=== PATIENT | female | born 1965 | race Caucasian/White ===

== ENCOUNTER → 2017-03-18 | Outpatient (CLI) | payer OTHER ==
--- NOTE | 2017-03-18 15:29 | CR ---
EXAMINATION: Bilateral knees HISTORY: Pain COMPARISON: None TECHNIQUE: 4 views bilaterally FINDINGS: Knee joint spaces appear preserved bilaterally. No fracture or acute osseous abnormality. Bone mineralization is normal. No soft tissue swelling or joint effusion. IMPRESSION: Grossly unremarkable bilateral knees.
== END ==
LOC: MW.CHRC 08:20
PROVIDERS: ATTEND Family Medicine
DX: M25.561 Pain in right knee (principal); M25.562 Pain in left knee; E89.0 Postprocedural hypothyroidism
CPT/HCPCS: 36415; 735642650; 73564-50; 84443

== ENCOUNTER → 2017-03-25 | Outpatient (CLI) | payer OTHER ==
--- NOTE | 2017-03-28 13:34 | MR ---
EXAM DATE: 03/25/17 PATIENT'S AGE: 51 Patient: ROBERTO SULLIVAN Facility: [place], [place] Site Site : [id number] Study: MRI Knee Left [id number]/[id number] 3:31:35 PM Ordering Physician: KATHY HAWTHORNE Final Report: HISTORY: Left knee pain. Technique: Axial, sagittal and coronal T1, proton density and proton density fat saturated images were obtained of the left knee without contrast administration. Comparison: Radiographs 03/18/2017. Findings: Medial compartment: Medial meniscus: Medial meniscus is intact without tear. Articular cartilage: Articular surfaces of the medial joint space compartment appear smooth without focal chondral defect. - Lateral compartment: Lateral meniscus: Intact without tear. Articular cartilage: Articular surfaces of the lateral compartment appear smooth without focal chondral defect. - Patellofemoral compartment: There is subchondral marrow edema underlying the patellar apex and medial facet which suggests the presence of localized grade 4 cartilage fissuring. There is some thinning of the articular cartilage in that region along with surface irregularity related fissuring and fraying. Mild medial trochlear cartilage wear (grade 2). - Ligaments: Subacute high-grade partial tearing of the proximal medial collateral ligament. The lateral ligamentous complex is maintained. The anterior cruciate and posterior cruciate ligaments are intact. - Extensor mechanism: Distal quadriceps tendon and patellar tendon are intact. Medial and lateral patellar restraints are intact. No patellar subluxation or geovanna. - Joint space: Physiologic quantity of joint fluid. No intra-articular joint body. - Bones and soft tissues: Small popliteal cyst. No acute fracture or avascular necrosis. No soft tissue mass or bursitis. Impression: 1. Subacute high-grade partial tearing of the proximal medial collateral ligament, left knee. 2. Chondromalacia patella. 3. Small popliteal cyst. 4. No meniscal tear. Dictated by Shamar Bose MD @ Mar 28 2017 8:40AM (Electronic Signature) Report Signed by Proxy. MITCHELL
== END ==
LOC: MW.MRI 14:45
PROVIDERS: ATTEND Family Medicine
DX: M25.562 Pain in left knee (principal)
CPT/HCPCS: 73721-26-LT; 73721-LT

== ENCOUNTER 2019-03-31 15:05 | Emergency (ER) | payer OTHER ==
[2019-03-31] MEDS ORDERED: Morphine 2 MG/ML Syringe IVPUSH ONE (15:17)
--- NOTE | 2019-03-31 15:18 | EDM.PDOC ---
ED HPI GENERAL MEDICAL PROBLEM - General Chief Complaint: Syncope Stated Complaint: POSSIBLE BROKE ANKLE Time Seen by Provider: 03/31/19 15:17 Source of Information: Reports: Patient - History of Present Illness INITIAL COMMENTS - FREE TEXT/NARRATIVE: HISTORY AND PHYSICAL: History of present illness: [Patient tripped and fell or possibly had syncopal episode she is uncertain she fell down some stairs her main complaint is that of right ankle pain there is moderate swelling and tenderness associated with the lateral ankle/malleolus She does note that she struck her head during the fall but does not recall any loss of consciousness orders uncertain She is also uncertain whether it was even a syncopal event but fall or if she tripped she does just uncertain of the details she has no fever nausea vomiting chills sweats no chest pain shortness breath headache dizziness or palpitation no bowel or urine symptoms ] Review of systems: As per history of present illness and below otherwise all systems reviewed and negative. Past medical history: As per history of present illness and as reviewed below otherwise noncontributory. Surgical history: As per history of present illness and as reviewed below otherwise noncontributory. Social history: No reported history of drug or alcohol abuse. Family history: As per history of present illness and as reviewed below otherwise noncontributory. Physical exam: HEENT: Atraumatic, normocephalic, pupils reactive, negative for conjunctival pallor or scleral icterus, mucous membranes moist, throat clear, neck supple, nontender, trachea midline. Lungs: Clear to auscultation, breath sounds equal bilaterally, chest nontender. Heart: S1S2, regular, negative for clicks, rubs, or JVD. Abdomen: Soft, nondistended, nontender. Negative for masses or hepatosplenomegaly. Negative for costovertebral tenderness. Pelvis: Stable nontender. Genitourinary: Deferred. Rectal: Deferred. Extremities: Atraumatic, negative for cords or calf pain. Neurovascular unremarkable. Right lower extremity hip and knee unaffected lateral malleolus swelling and tenderness noted entire limb neurovascularly intact Neuro: Awake, alert, oriented. Cranial nerves II through XII unremarkable. Cerebellum unremarkable. Motor and sensory unremarkable throughout. Exam nonfocal. Diagnostics: [Right ankle] 3 views Chest [address] CBC CMP UA ordered who were able to obtain a CBC patient refused further lab as she is hard stick and was in yesterday and also blood was unable to be obtained at that time she refused further lab draw EKG - Therapeutics: [Morphine 2 mg IV Cam boot crutches nonweightbearing Follow-up with sore throat [place] ] Impression: [Right ankle fracture definitive disposition and diagnosis as appropriate pending reevaluation and review of above. Right Ankle Pain Score (Numeric/FACES): 7 - Related Data Allergies Allergy/AdvReac Type Severity Reaction Status Date / Time Tape Allergy Rash Uncoded 03/31/19 15:19 Home Meds: Home Meds Zolpidem [Ambien] 10 mg PO BEDTIME 03/31/19 [History] Past Medical History Neurological History: Reports: Other (See Below) Other Neuro History: Suboccipital craniotomy for resection of AVM on 07/14/18. - Past Surgical History HEENT Surgical History: Reports: Cataract Surgery ED ROS GENERAL - Review of Systems Review Of Systems: See Below ED EXAM, GENERAL - Physical Exam Exam: See Below Course - Vital Signs Last Recorded V/S: Last Vital Signs Temp 97.3 F 03/31/19 15:22 Pulse 75 03/31/19 15:22 Resp 16 03/31/19 15:22 BP 129/68 03/31/19 15:22 Pulse Ox 100 03/31/19 15:22 - Orders/Labs/Meds Orders: Active Orders 24 hr Category Date Time Status EKG Documentation Completion [RC] STAT Care 03/31/19 15:30 Active COMPREHENSIVE METABOLIC PN,CMP [CHEM] Stat Lab 03/31/19 15:30 Ordered ETOH [ETHANOL BLOOD MEDICAL] [CHEM] Stat Lab 03/31/19 15:30 Ordered TROPONIN I [CHEM] Stat Lab 03/31/19 15:30 Ordered UA RFX VANDANA AND CULT IF INDIC [URIN] Stat Lab 03/31/19 15:30 Ordered Labs: Laboratory Tests 03/31/19 Range/Units 15:48 WBC 10.52 (4.0-11.0) K/uL RBC 4.86 (4.30-5.90) M/uL Hgb 14.4 (12.0-16.0) g/dL Hct 43.6 (36.0-46.0) % MCV 89.7 (80.0-98.0) fL MCH 29.6 (27.0-32.0) pg MCHC 33.0 (31.0-37.0) g/dL RDW Std Deviation 44.0 (28.0-62.0) fl RDW Coeff of Lexi 13 (11.0-15.0) % Plt Count 354 (150-400) K/uL MPV 10.20 (7.40-12.00) fL Neut % (Auto) 52.3 (48.0-80.0) % Lymph % (Auto) 41.7 H (16.0-40.0) % [place] % (Auto) 4.0 (0.0-15.0) % Eos % (Auto) 1.5 (0.0-7.0) % Baso % (Auto) 0.5 (0.0-1.5) % Neut # (Auto) 5.5 (1.4-5.7) K/uL Lymph # (Auto) 4.4 H (0.6-2.4) K/uL [place] # (Auto) 0.4 (0.0-0.8) K/uL Eos # (Auto) 0.2 (0.0-0.7) K/uL Baso # (Auto) 0.1 (0.0-0.1) K/uL Nucleated RBC % 0.0 /100WBC Nucleated RBCs # 0 K/uL Meds: Medications Discontinued Medications Generic Name Dose Route Start Last Admin Trade Name Freq PRN Reason Stop Dose Admin Sodium Chloride 1,000 mls @ 999 mls/hr 03/31/19 15:30 03/31/19 15:42 Normal Saline IV 03/31/19 16:30 Not Given STAT ONE Morphine Sulfate 2 mg 03/31/19 15:17 03/31/19 15:35 Morphine IVPUSH 03/31/19 15:18 2 mg ONETIME ONE Administration Departure - Departure Time of Disposition: 17:49 Disposition: Home, Self-Care 01 Condition: Good Clinical Impression: Closed right ankle fracture - Discharge Information Referrals: PCP,Unknown [Primary Care Provider] - Forms: ED Department Discharge Additional Instructions: Cam boot crutches nonweightbearing Medication as prescribed Return if symptoms persist or worsen Follow-up with orthopedist, call phone number below to schedule appropriate followup [facility] [address] [place] [address], [address] [place] [address] my orthopedic The following information is given to patients seen in the emergency department who are being discharged to home. This information is to outline your options for follow-up care. We provide all patients seen in our emergency department with a follow-up referral. The need for follow-up, as well as the timing and circumstances, are variable depending upon the specifics of your emergency department visit. If you don't have a primary care physician on staff, we will provide you with a referral. We always advise you to contact your personal physician following an emergency department visit to inform them of the circumstance of the visit and for follow-up with them and/or the need for any referrals to a consulting specialist. The emergency department will also refer you to a specialist when appropriate. This referral assures that you have the opportunity for follow-up care with a specialist. All of these measure are taken in an effort to provide you with optimal care, which includes your follow-up. Under all circumstances we always encourage you to contact your private physician who remains a resource for coordinating your care. When calling for follow-up care, please make the office aware that this follow-up is from your recent emergency room visit. If for any reason you are refused follow-up, please contact the [facility] emergency department at and asked to speak to the emergency department charge nurse. - My Orders Last 24 Hours: My Active Orders 03/31/19 15:30 EKG Documentation Completion [RC] STAT COMPREHENSIVE METABOLIC PN,CMP [CHEM] Stat ETOH [ETHANOL BLOOD MEDICAL] [CHEM] Stat TROPONIN I [CHEM] Stat UA RFX VANDANA AND CULT IF INDIC [URIN] Stat - Assessment/Plan Last 24 Hours: My Active Orders 03/31/19 15:30 EKG Documentation Completion [RC] STAT COMPREHENSIVE METABOLIC PN,CMP [CHEM] Stat ETOH [ETHANOL BLOOD MEDICAL] [CHEM] Stat TROPONIN I [CHEM] Stat UA RFX VANDANA AND CULT IF INDIC [URIN] Stat
[2019-03-31] MEDS ORDERED: Sodium Chloride 0.9% 1,000 ML IV ONE (15:30)
--- NOTE | 2019-03-31 16:34 | CR ---
HISTORY: Syncope. COMPARISON: None. FINDINGS: Two frontal views of the chest. The lungs are clear. Costophrenic angles sharp. Heart size and pulmonary vascularity are within normal limits. No acute pulmonary process. Dictated by Tasneem Matias MD @ Mar 31 2019 4:32PM Signed by Dr. Tasneem Matias @ Mar 31 2019 4:32PM
--- NOTE | 2019-03-31 16:34 | CR ---
Ankle injury 3 views of the right ankle Findings: There is an oblique nondisplaced distal fibular fracture. Soft tissue swelling. Normal alignment. Dictated by Anupama Veliz MD @ Mar 31 2019 4:32PM Signed by Dr. Anupama Veliz @ Mar 31 2019 4:33PM
--- NOTE | 2019-03-31 16:54 | CT ---
HISTORY: Fell, hit head. Prior brain surgery. Prior AVN embolization and resection. TECHNIQUE: Noncontrast head CT. COMPARISON: 03/30/2019. FINDINGS: Postsurgical changes of occipital craniotomy and post treatment changes of AVM surgery. There is no acute intracranial hemorrhage or acute ischemic infarct. No mass effect or midline shift. No hydrocephalus. No acute extra-axial collection. No acute skull fracture. No acute loss of gannon-white differentiation. The mastoid air cells are clear. Paranasal sinuses are clear. IMPRESSION: 1. No acute intracranial injury or disease. 2. Postsurgical changes of occipital craniotomy with post treatment changes of AVM surgery. Dictated by Shamar Bose MD @ 03/31/2019 4:53:17 PM Please note that all CT scans at this facility use dose modulation, iterative reconstruction, and/or weight-based dosing when appropriate to reduce radiation dose to as low as reasonably achievable. Dictated by: Shamar Bose MD @ 03/31/2019 16:53:23 (Electronically Signed)
== END 2019-03-31 18:16 | disposition home or self-care (01) ==
LOC: MW.ED 15:05
DX: S82.831A Other fracture of upper and lower end of right fibula, initial encounter for closed fracture (principal); Z91.09 Other allergy status, other than to drugs and biological substances; W10.9XXA Fall (on) (from) unspecified stairs and steps, initial encounter
CPT/HCPCS: 36415; 70450; 71045; 73610; 85025; 93005; 96374; 99284; J2270; 99283

== ENCOUNTER 2020-02-03 16:59 | Emergency (ER) | payer OTHER ==
[2020-02-03] MEDS ORDERED: Sodium Chloride 0.9% 1,000 ML IV ONE (18:27)
[2020-02-03] MEDS ORDERED: Ketorolac 30 MG/ML SDV IVPUSH ONE (18:27)
[2020-02-03] MEDS ORDERED: Ondansetron 4 MG/2 ML SDV IVPUSH ONE (18:28)
[2020-02-03] MEDS ORDERED: Morphine 2 MG/ML Syringe IVPUSH ONE (18:28)
--- NOTE | 2020-02-03 18:33 | EDM.PDOC ---
ED HPI GENERAL MEDICAL PROBLEM - General Chief Complaint: Flank Pain Stated Complaint: FLANK PAIN, VOMITING Time Seen by Provider: 02/03/20 18:17 Source of Information: Reports: Patient History Limitations: Reports: No Limitations - History of Present Illness INITIAL COMMENTS - FREE TEXT/NARRATIVE: HISTORY AND PHYSICAL: History of present illness: Patient is a 54-year-old female who presents to the ED today with concern of left-sided flank pain that started about 3 this afternoon. Patient states yesterday she was having the pain off and on but today at 3 it hit and since then has been in pain. Patient states she has not taken any pain medications today for her symptoms. Patient states she is also had a few episodes of vomiting since the pain has started and feels nauseous. Patient has a history of hypothyroidism and osteoarthritis but denies any other health history. Patient denies any other symptoms or concerns. Patient denies fever, chills, chest pain, shortness of breath, or cough. Denies headache, neck stiff ness, change in vision, syncope, or near syncope. Denies diarrhea, constipation, or dysuria. Has not noted any blood in urine or stool. Patient has been eating and drinking appropriately. Review of systems: As per history of present illness and below otherwise all systems reviewed and negative. Past medical history: As per history of present illness and as reviewed below otherwise noncontributory. Surgical history: As per history of present illness and as reviewed below otherwise noncontributory. Social history: See social history for further information Family history: As per history of present illness and as reviewed below otherwise noncontributory. Physical exam: General: Patient is alert, oriented, and in no acute distress. Patient sitting on exam table and tearful throughout exam, appearing mildly uncomfortable from pain. HEENT: Atraumatic, normocephalic, pupils equal and reactive bilaterally, negative for conjunctival pallor or scleral icterus, mucous membranes moist, TMs normal bilaterally, throat clear, neck supple, nontender, trachea midline. No drooling or trismus noted. No meningeal signs. No hot potato voice noted. Lungs: Clear to auscultation, breath sounds equal bilaterally, chest nontender. Heart: S1S2, regular rate and rhythm without overt murmur Abdomen: Soft, nondistended, nontender. Negative for masses or hepatosplenomegaly. Positive for costovertebral tenderness of the left. Pelvis: Stable nontender. Genitourinary: Deferred. Rectal: Deferred. Skin: Intact, warm, dry. No lesions or rashes noted. Extremities: Atraumatic, negative for cords or calf pain. Neurovascular unremarkable. Neuro: Awake, alert, oriented. Cranial nerves II through XII unremarkable. Cerebellum unremarkable. Motor and sensory unremarkable throughout. Exam nonfocal. Notes: Discussed importance for follow-up with urologist. Voices understanding and is agreeable to plan of care. Denies any further questions or concerns at this time. Diagnostics: UA, hcg, CBC, CMP, EKG, chest x-ray, troponin, lipase, abdominal pelvic CT without contrast Therapeutics: NS, Zofran, Morphine Prescription: [place] 5/325 #20, Zofran, Flomax Impression: Ureterolithiasis Plan: 1. Take medication as prescribed. You can also use Tylenol and ibuprofen as directed for pain and discomfort. 2. Follow-up with the urologist as discussed. The number has been provided above for you to call and establish an appointment time. 3. Return to the ED as needed and as discussed. Definitive disposition and diagnosis as appropriate pending reevaluation and review of above. left flank Pain Score (Numeric/FACES): 8 - Related Data Allergies Allergy/AdvReac Type Severity Reaction Status Date / Time Tape Allergy Rash Uncoded 02/03/20 17:50 Home Meds: Home Meds Celecoxib [CeleBREX] mg PO DAILY 02/03/20 [History] Doxepin HCl [Silenor] 6 mg PO BEDTIME 02/03/20 [History] Levothyroxine 125 mcg PO DAILY 02/03/20 [History] Melatonin 10 mg PO BEDTIME 02/03/20 [History] Past Medical History Neurological History: Reports: Other (See Below) Other Neuro History: Suboccipital craniotomy for resection of AVM on 07/14/18. - Infectious Disease History Infectious Disease History: Reports: Chicken Pox - Past Surgical History HEENT Surgical History: Reports: Cataract Surgery Social & Family History - Family History Family Medical History: Noncontributory - Tobacco Use Smoking Status *Q: Former Smoker Used Tobacco, but Quit: Yes Month/Year Tobacco Last Used: 2017 - Caffeine Use Caffeine Use: Reports: Coffee, Energy Drinks, Soda, Tea - Recreational Drug Use Recreational Drug Use: No ED ROS GENERAL - Review of Systems Review Of Systems: Comprehensive ROS is negative, except as noted in HPI. ED EXAM, GENERAL - Physical Exam Exam: See Below (see dictation) Course - Vital Signs Last Recorded V/S: Last Vital Signs Temp 97.7 F 02/03/20 20:04 Pulse 78 02/03/20 20:04 Resp 18 02/03/20 20:04 BP 120/65 02/03/20 20:04 Pulse Ox 97 02/03/20 20:04 - Orders/Labs/Meds Orders: Active Orders 24 hr Category Date Time Status EKG Documentation Completion [RC] STAT Care 02/03/20 18:27 Active Labs: Laboratory Tests 02/03/20 02/03/20 02/03/20 Range/Units 18:37 18:37 18:37 WBC 15.54 H (4.0-11.0) K/uL RBC 5.07 (4.30-5.90) M/uL Hgb 14.8 (12.0-16.0) g/dL Hct 44.7 (36.0-46.0) % MCV 88.2 (80.0-98.0) fL MCH 29.2 (27.0-32.0) pg MCHC 33.1 (31.0-37.0) g/dL RDW Std Deviation 43.9 (28.0-62.0) fl RDW Coeff of Lexi 14 (11.0-15.0) % Plt Count 379 (150-400) K/uL MPV 11.00 (7.40-12.00) fL Neut % (Auto) 84.2 H (48.0-80.0) % Lymph % (Auto) 13.3 L (16.0-40.0) % [place] % (Auto) 2.1 (0.0-15.0) % Eos % (Auto) 0.2 (0.0-7.0) % Baso % (Auto) 0.2 (0.0-1.5) % Neut # (Auto) 13.1 H (1.4-5.7) K/uL Lymph # (Auto) 2.1 (0.6-2.4) K/uL [place] # (Auto) 0.3 (0.0-0.8) K/uL Eos # (Auto) 0.0 (0.0-0.7) K/uL Baso # (Auto) 0.0 (0.0-0.1) K/uL Nucleated RBC % 0.0 /100WBC Nucleated RBCs # 0 K/uL Sodium 142 (136-145) mmol/L Potassium 3.8 (3.5-5.1) mmol/L Chloride 106 (98-107) mmol/L Carbon Dioxide 25.1 (21.0-32.0) mmol/L BUN 12 (7.0-18.0) mg/dL Creatinine 0.8 (0.6-1.0) mg/dL Est Cr Clr Drug Dosing 82.98 mL/min Estimated GFR (MDRD) > 60.0 ml/min Glucose 118 H (74-106) mg/dL Calcium 9.3 (8.5-10.1) mg/dL Total Bilirubin 0.2 (0.2-1.0) mg/dL AST 19 (15-37) IU/L ALT 39 (14-63) IU/L Alkaline Phosphatase 116 (46-116) U/L Troponin I < 0.050 (0.000-0.056) ng/mL Total Protein 7.7 (6.4-8.2) g/dL Albumin 4.0 (3.4-5.0) g/dL Globulin 3.7 (2.6-4.0) g/dL Albumin/Globulin Ratio 1.1 (0.9-1.6) Lipase 174 (73-393) U/L HCG, Qual NEGATIVE (NEG) Urine Color Urine Appearance Urine pH (5.0-8.0) Ur Specific [place] (1.001-1.035) Urine Protein (NEGATIVE) mg/dL Urine Glucose (UA) (NEGATIVE) mg/dL Urine Ketones (NEGATIVE) mg/dL Urine Occult Blood (NEGATIVE) Urine Nitrite (NEGATIVE) Urine Bilirubin (NEGATIVE) Urine Urobilinogen (<2.0) EU/dL Ur Leukocyte Esterase (NEGATIVE) Urine RBC (0-2/HPF) Urine WBC (0-5/HPF) Ur Epithelial Cells (NONE-FEW) Urine Bacteria (NEGATIVE) 02/03/20 Range/Units 19:58 WBC (4.0-11.0) K/uL RBC (4.30-5.90) M/uL Hgb (12.0-16.0) g/dL Hct (36.0-46.0) % MCV (80.0-98.0) fL MCH (27.0-32.0) pg MCHC (31.0-37.0) g/dL RDW Std Deviation (28.0-62.0) fl RDW Coeff of Lexi (11.0-15.0) % Plt Count (150-400) K/uL MPV (7.40-12.00) fL Neut % (Auto) (48.0-80.0) % Lymph % (Auto) (16.0-40.0) % [place] % (Auto) (0.0-15.0) % Eos % (Auto) (0.0-7.0) % Baso % (Auto) (0.0-1.5) % Neut # (Auto) (1.4-5.7) K/uL Lymph # (Auto) (0.6-2.4) K/uL [place] # (Auto) (0.0-0.8) K/uL Eos # (Auto) (0.0-0.7) K/uL Baso # (Auto) (0.0-0.1) K/uL Nucleated RBC % /100WBC Nucleated RBCs # K/uL Sodium (136-145) mmol/L Potassium (3.5-5.1) mmol/L Chloride (98-107) mmol/L Carbon Dioxide (21.0-32.0) mmol/L BUN (7.0-18.0) mg/dL Creatinine (0.6-1.0) mg/dL Est Cr Clr Drug Dosing mL/min Estimated GFR (MDRD) ml/min Glucose (74-106) mg/dL Calcium (8.5-10.1) mg/dL Total Bilirubin (0.2-1.0) mg/dL AST (15-37) IU/L ALT (14-63) IU/L Alkaline Phosphatase (46-116) U/L Troponin I (0.000-0.056) ng/mL Total Protein (6.4-8.2) g/dL Albumin (3.4-5.0) g/dL Globulin (2.6-4.0) g/dL Albumin/Globulin Ratio (0.9-1.6) Lipase (73-393) U/L HCG, Qual (NEG) Urine Color YELLOW Urine Appearance SLT CLOUDY Urine pH 6.0 (5.0-8.0) Ur Specific [place] 1.010 (1.001-1.035) Urine Protein NEGATIVE (NEGATIVE) mg/dL Urine Glucose (UA) NEGATIVE (NEGATIVE) mg/dL Urine Ketones TRACE H (NEGATIVE) mg/dL Urine Occult Blood LARGE H (NEGATIVE) Urine Nitrite NEGATIVE (NEGATIVE) Urine Bilirubin NEGATIVE (NEGATIVE) Urine Urobilinogen 0.2 (<2.0) EU/dL Ur Leukocyte Esterase NEGATIVE (NEGATIVE) Urine RBC 1-3 (0-2/HPF) Urine WBC 0-3 (0-5/HPF) Ur Epithelial Cells FEW (NONE-FEW) Urine Bacteria FEW (NEGATIVE) Meds: Medications Discontinued Medications Generic Name Dose Route Start Last Admin Trade Name Freq PRN Reason Stop Dose Admin Sodium Chloride 1,000 mls @ 999 mls/hr 02/03/20 18:27 02/03/20 18:44 Normal Saline IV 02/03/20 19:27 999 mls/hr BOLUS ONE Administration Ketorolac Tromethamine 30 mg 02/03/20 18:27 02/03/20 18:44 Toradol IVPUSH 02/03/20 18:28 Not Given ONETIME ONE Morphine Sulfate 2 mg 02/03/20 18:28 02/03/20 18:44 Morphine IVPUSH 02/03/20 18:29 2 mg ONETIME ONE Administration Ondansetron HCl 4 mg 02/03/20 18:28 02/03/20 18:44 Zofran IVPUSH 02/03/20 18:29 4 mg ONETIME ONE Administration Departure - Departure Time of Disposition: 20:25 Disposition: Home, Self-Care 01 Clinical Impression: Ureterolithiasis - Discharge Information Referrals: Gideon Barriga MD [Primary Care Provider] - Forms: ED Department Discharge Additional Instructions: The following information is given to patients seen in the emergency department who are being discharged to home. This information is to outline your options for follow-up care. We provide all patients seen in our emergency department with a follow-up referral. The need for follow-up, as well as the timing and circumstances, are variable depending upon the specifics of your emergency department visit. If you don't have a primary care physician on staff, we will provide you with a referral. We always advise you to contact your personal physician following an emergency department visit to inform them of the circumstance of the visit and for follow-up with them and/or the need for any referrals to a consulting specialist. The emergency department will also refer you to a specialist when appropriate. This referral assures that you have the opportunity for follow-up care with a specialist. All of these measure are taken in an effort to provide you with optimal care, which includes your follow-up. Under all circumstances we always encourage you to contact your private physician who remains a resource for coordinating your care. When calling for follow-up care, please make the office aware that this follow-up is from your recent emergency room visit. If for any reason you are refused follow-up, please contact the [facility] Emergency Department at and asked to speak to the emergency department charge nurse. [facility] [address] [place] [address] [address] [facility] - Urology [address] [place] [id number] 1. Take medication as prescribed. You can also use Tylenol and ibuprofen as directed for pain and discomfort. 2. Follow-up with the urologist as discussed. The number has been provided above for you to call and establish an appointment time. 3. Return to the ED as needed and as discussed. Sepsis Event Note - Evaluation Sepsis Screening Result: No Definite Risk - Focused Exam Vital Signs: Vital Signs Temp Pulse Resp BP Pulse Ox 02/03/20 20:04 97.7 F 78 18 120/65 97 02/03/20 17:52 96.9 F 76 24 H 130/79 100 Date Exam was Performed: 02/03/20 Time Exam was Performed: 20:20 - My Orders Last 24 Hours: My Active Orders 02/03/20 18:27 EKG Documentation Completion [RC] STAT - Assessment/Plan Last 24 Hours: My Active Orders 02/03/20 18:27 EKG Documentation Completion [RC] STAT
--- NOTE | 2020-02-03 19:04 | CR ---
INDICATION: Chest pain; difficulty breathing. COMPARISON: Chest radiograph March 31, 2019. TECHNIQUE: Portable AP chest. FINDINGS: Normal size cardiac silhouette. Clear lung meng with no evidence of acute pneumonic infiltrates or CHF. No pneumothorax or pleural effusion. Impression: Negative portable AP chest. Dictated by Ania Nick MD @ Feb 03 2020 7:00PM Signed by Dr. Ania Nick @ Feb 03 2020 7:01PM
[2020-02-03 19:09] LABS: BLOOD UREA NITROGEN,BUN 12 mg/dL (7.0-18.0); CARBON DIOXIDE,CO2 25.1 mmol/L (21.0-32.0); CHLORIDE,CL 106 mmol/L (98-107); GLUCOSE RANDOM 118 mg/dL (74-106); LIPASE 174 U/L (73-393); POTASSIUM,K 3.8 mmol/L (3.5-5.1); SODIUM,NA 142 mmol/L (136-145)
--- NOTE | 2020-02-03 19:24 | CT ---
INDICATION: Left flank pain. COMPARISON: None available TECHNIQUE: CT examination of the abdomen and pelvis was performed without contrast enhancement using 3 mm thick axial sections from the lung bases through the pubic symphysis. Oral contrast was not administered. Please note that all CT scans at this facility use dose modulation, iterative reconstruction, and/or weight-based dosing when appropriate to reduce radiation dose to as low as reasonably achievable. FINDINGS: In the abdomen, the unenhanced liver, spleen, pancreas, and adrenals are normal in appearance. There is a 3 millimeter calculus located in the proximal left ureter immediately distal to the UPJ. This is associated with mild left hydronephrosis. There is no sign of additional left hydroureter or additional renal or ureteral calculi on the left. The right kidney is normal in appearance, with no sign of calculus or obstruction. The right ureter is normal in caliber and there is no sign of ureteral lithiasis. The gallbladder is normal in appearance. The abdominal aorta is normal in caliber with no sign of dilatation. There is no sign of retroperitoneal mass or adenopathy. The stomach, loops of small bowel, and colon in the abdomen are normal in appearance. In the pelvis, the appendix is normal in appearance with no sign of inflammatory process. The loops of small bowel and colon in the pelvis are normal in appearance. The right adnexal region has a tiny punctate calcification, nonspecific. A similar tiny punctate calcification is seen in the left adnexal region. The uterus is normal in appearance. The urinary bladder is normal in appearance. There is no sign of pelvic or inguinal mass or adenopathy. There is no sign of free air or free fluid in the abdomen or pelvis. The lung bases are clear. There is moderate at L5-S1 and mild L4-5 disc degenerative disease. IMPRESSION: CT of the abdomen shows mild left hydronephrosis produced by a 3 millimeter calculus located in the left proximal ureter immediately distal to the UPJ. No sign of any additional renal or ureteral calculi. Normal CT of the pelvis without contrast. Please note that all CT scans at this facility use dose modulation, iterative reconstruction, and/or weight-based dosing when appropriate to reduce radiation dose to as low as reasonably achievable. Dictated by Nicholas Ashley MD @ Feb 03 2020 7:16PM Signed by Dr. Nicholas Ashley @ Feb 03 2020 7:22PM
== END 2020-02-03 20:40 | disposition home or self-care (01) ==
LOC: MW.ED 16:59
DX: N13.2 Hydronephrosis with renal and ureteral calculous obstruction (principal); Z79.899 Other long term (current) drug therapy; Z87.891 Personal history of nicotine dependence; Z91.09 Other allergy status, other than to drugs and biological substances
CPT/HCPCS: 36415; 71045; 74176; 80053; 81001; 83690; 84484; 84703; 85025; 96361; 96374; 96375; 99285; J2270; J2405; J7030; 99284

== ENCOUNTER 2021-03-31 08:39 | Day surgery (SDC) | payer BC ==
[~2021-03-31 08:39] MED LIST: Lactated Ringers 1,000 ML IV SCH; Sodium Chloride 0.9% 10 ML SDV IV PRN; Sodium Chloride 0.9% 10 ML Syringe FLUSH PRN; Sodium Chloride 0.9% 2.5 ML Syringe FLUSH PRN
[2021-03-31] MEDS ORDERED: Propofol 200 MG/20 ML SDV ONE (08:50)
[2021-03-31] MEDS ORDERED: Lidocaine 2% 5 ML SDV ONE (08:50)
[2021-03-31] MEDS ORDERED: Midazolam 1 MG/ML 2 ML SDV ONE (08:51)
[2021-03-31] MEDS ORDERED: fentaNYL 100 MCG/2 ML SDV ONE (08:51)
--- NOTE | 2021-03-31 09:34 | PCM.PREANE ---
Preanesthetic Assessment - Anesthesia/Transfusion/Family Hx Anesthesia History: Prior Anesthesia Without Reaction Family History of Anesthesia Reaction: No Transfusion History: No Prior Transfusion(s) - Review of Systems General: No Symptoms Pulmonary: No Symptoms Cardiovascular: No Symptoms Gastrointestinal: No Symptoms Neurological: No Symptoms Other: Reports: None - Physical Assessment NPO Status Date: 03/31/21 NPO Status Time: 00:01 Vital Signs: Last Vital Signs Temp 97.2 F 03/31/21 08:50 Pulse 85 03/31/21 08:50 Resp 16 03/31/21 08:50 BP 109/69 03/31/21 08:50 Pulse Ox 98 03/31/21 08:50 Height: 5 ft 8 in Weight: 158 lb ASA Class: 2 Mental Status: Alert & Oriented x3 Airway Class: Mallampati = 2 Dentition: Reports: Normal Dentition ROM/Head Extension: Full Lungs: Clear to Auscultation, Normal Respiratory Effort Cardiovascular: Regular Rate, Regular Rhythm - Allergies Allergies/Adverse Reactions: Allergies Allergy/AdvReac Type Severity Reaction Status Date / Time adhesive tape Allergy Blisters Verified 03/31/21 09:16 gabapentin Allergy Nausea and Verified 03/31/21 09:16 Vomiting - Anesthesia Plan Pre-Op Medication Ordered: None, Other - Acknowledgements Anesthesia Type Planned: General Anesthesia Pt an Appropriate Candidate for the Planned Anesthesia: Yes Alternatives and Risks of Anesthesia Discussed w Pt/Guardian: Yes Pt/Guardian Understands and Agrees with Anesthesia Plan: Yes Additional Comments: npo tob quit 2015 etoh 6 beers on weekend anxiety headaches cerebellar AVM repaired 2019 residual chronic nausea, emesis - most mornings after drinking takss phenergan 25 mg Q HS (zofran does not work) residual L sided facial twitching some ataxia walks without walker bmi 24 doesn't like to eat food - forces herself to eat par no questions very anxious - 2 mg versed given IV 0925 PreAnesthesia Questionnaire HEENT History: Reports: Cataract, Other (See Below) Other HEENT History: uses reading glasses Cardiovascular History: Reports: Other (See Below) Other Cardiovascular History: 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 Respiratory History: Reports: None Gastrointestinal History: Reports: GERD Other Gastrointestinal History: dysphagia, N&V since Craniotomy Genitourinary History: Reports: None [employer]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: Musculoskeletal History: Reports: Osteoarthritis Neurological History: Reports: Headaches, Chronic Other Neuro History: pain from nerve damage on back of head Psychiatric History: Reports: Anxiety, Depression, PTSD Endocrine/Metabolic History: Reports: Hypothyroidism Hematologic History: Reports: None Immunologic History: Reports: None Oncologic (Cancer) History: Reports: None Dermatologic History: Reports: None - Infectious Disease History Infectious Disease History: Reports: Chicken Pox - Past Surgical History Head Surgeries/Procedures: Reports: None HEENT Surgical History: Reports: Cataract Surgery, Tonsillectomy Cardiovascular Surgical History: Reports: None Respiratory Surgical History: Reports: None GI Surgical History: Reports: None Female Surgical History: Reports: Tubal Ligation Endocrine Surgical History: Reports: None Musculoskeletal Surgical History: Reports: Other (See Below) Other Musculoskeletal Surgeries/Procedures:: repair of "deformed bones" in her feet, Craniotomy Oncologic Surgical History: Reports: None Dermatological Surgical History: Reports: None - SUBSTANCE USE Tobacco Use Status *Q: Former Tobacco User Tobacco Use Within Last Twelve Months: No Recreational Drug Use History: No - HOME MEDS Home Medications: Home Meds Celecoxib [CeleBREX] 200 mg PO DAILY 02/03/20 [History] Doxepin HCl [Silenor] 6 mg PO BEDTIME 02/03/20 [History] Levothyroxine 125 mcg PO QAM 02/03/20 [History] Melatonin 10 mg PO BEDTIME 02/03/20 [History] Baclofen 10 mg PO Q6H PRN 03/25/21 [History] Calcium Carb/Vitamin D3/Vit K1 [Viactiv 650 mg-12.5 Mcg Chew] 1 tab CHEW DAILY 03/25/21 [History] Calcium Carbonate [Tums] 500 mg CHEW ASDIRECTED PRN 03/25/21 [History] Escitalopram Oxalate 20 mg PO DAILY 03/25/21 [History] Ketamine HCl [Ketamine Hydrochloride] 1 dose TOP ASDIRECTED 03/25/21 [History] Promethazine [Phenergan] 25 mg PO Q4H PRN 03/25/21 [History] Sennosides/Docusate Sodium [Senna-Docusate Sodium Tablet] 1 tab PO DAILY PRN 03/25/21 [History] clonazePAM [Clonazepam] 0.5 mg PO BEDTIME PRN 03/25/21 [History] - CURRENT (IN HOUSE) MEDS Current Meds: Current Medications Lactated Ringer's (Ringers, Lactated) 1,000 mls @ 125 mls/hr IV ASDIRECTED SAM Last Admin: 03/31/21 09:11 Dose: 125 mls/hr Documented by: Sodium Chloride (Sodium Chloride 0.9% 10 Ml Syringe) 10 ml FLUSH ASDIRECTED PRN PRN Reason: Keep Vein Open Sodium Chloride (Sodium Chloride 0.9% 2.5 Ml Syringe) 2.5 ml FLUSH ASDIRECTED PRN PRN Reason: Keep Vein Open Sodium Chloride (Sodium Chloride 0.9% 10 Ml Syringe) 10 ml FLUSH ASDIRECTED PRN PRN Reason: Keep Vein Open Sodium Chloride (Sodium Chloride 0.9% 2.5 Ml Syringe) 2.5 ml FLUSH ASDIRECTED PRN PRN Reason: Keep Vein Open Sodium Chloride (Sodium Chloride 0.9% 10 Ml Sdv) 10 ml IV ASDIRECTED PRN PRN Reason: IV Use Discontinued Medications Fentanyl (Fentanyl 100 Mcg/2 Ml Sdv) Confirm Administered Dose 100 mcg .ROUTE .STK-MED ONE Stop: 03/31/21 08:52 Lidocaine (Lidocaine 2% 5 Ml Sdv) Confirm Administered Dose 5 ml .ROUTE .STK-MED ONE Stop: 03/31/21 08:51 Midazolam HCl (Midazolam 1 Mg/Ml 2 Ml Sdv) Confirm Administered Dose 2 mg .ROUTE .STK-MED ONE Stop: 03/31/21 08:52 Propofol (Propofol 200 Mg/20 Ml Sdv) Confirm Administered Dose 400 mg .ROUTE .STK-MED ONE Stop: 03/31/21 08:51
[2021-03-31] MEDS ORDERED: Ondansetron 4 MG/2 ML SDV ONE ×2 (09:45→09:47)
[2021-03-31] MEDS ORDERED: Promethazine 25 MG/ML SDV ONE (09:45)
--- NOTE | 2021-03-31 10:13 | PCM.OPNOTE ---
- General Post-Op/Procedure Note Date of Surgery/Procedure: 03/31/21 Operative Procedure(s): Diagnostic EGD with biopsies Findings: Hiatal hernia. Bx of duodenum, antrum body fundus of stomach and esophagus. Pre Op Diagnosis: Chronic nausea and vomiting Post-Op Diagnosis: Hiatal hernia Anesthesia Technique: MAC Primary Surgeon: Brenda Barrera Condition: Good
--- NOTE | 2021-03-31 10:38 | PCM.POSTAN ---
POST ANESTHESIA ASSESSMENT - MENTAL STATUS Mental Status: Alert (no anesthetic problems), Oriented - VITAL SIGNS Vital Signs: Last Vital Signs Temp 97.5 F 03/31/21 10:12 Pulse 80 03/31/21 10:33 Resp 15 03/31/21 10:33 BP 118/71 03/31/21 10:33 Pulse Ox 96 03/31/21 10:33 - RESPIRATORY Respiratory Status: Respiratory Rate WNL, Airway Patent, O2 Saturation Stable - CARDIOVASCULAR CV Status: Pulse Rate WNL, Blood Pressure Stable - GASTROINTESTINAL GI Status: No Symptoms - POST OP HYDRATION Hydration Status: Adequate & Stable
--- NOTE | 2021-03-31 11:45 | OR ---
SURGEON: BRENDA BARRERA MD DATE OF PROCEDURE: 03/31/2021 PREOPERATIVE DIAGNOSIS: Chronic nausea and vomiting. POSTOPERATIVE DIAGNOSIS: Hiatal hernia. PROCEDURE PERFORMED: Diagnostic esophagogastroduodenoscopy with biopsies. PRIMARY SURGEON: Brenda Barrera MD ANESTHESIA: MAC. INSTRUMENT USED: Olympus endoscope. EXTENT OF EXAM: To the second portion of duodenum. PREPARATION: Good. LIMITATIONS: None. INDICATIONS FOR EXAMINATION: The patient is a 55-year-old female who has chronic nausea and vomiting. She had an AVM resected from her cerebellum a couple of years ago and ever since then, she has intractable nausea in the mornings. She has tried multiple medications with no relief. The decision was made to proceed with diagnostic EGD to rule out any upper GI source of her symptoms. The patient and I discussed the procedure, expected perioperative course, and the risks. She verbalized understanding and wishes to proceed. PROCEDURE IN DETAIL: The patient was brought to the endoscopy suite and placed in a supine position. A time-out was completed verifying the patient's name, age, date of , allergies, and procedure to be performed. A bite block was placed in the patient's mouth. Monitored anesthesia care was induced, and continuous oxygen was provided via nasal cannula throughout the procedure. After adequate sedation was achieved, a well-lubricated endoscope was placed in the patient's mouth and advanced under direct visualization to the second portion of duodenum. This appeared normal, and a photograph was taken. The scope was then fully withdrawn while examining the color, texture, anatomy, and integrity mucosa of the upper GI tract. A biopsy was taken in the duodenal bulb; however, no evidence of gross inflammation or ulceration was seen. The scope was then brought into the stomach, and a photograph was taken of the pylorus and GE junction. The patient appeared to have a hiatal hernia, and a photograph of this was taken. Biopsies were taken of the gastric antrum, body, and fundus and sent for histologic review and H. pylori testing. The gastric mucosa appeared normal. The scope was brought into the distal esophagus. The patient clearly had a hiatal hernia sac. This was small, and a photograph was taken of this. The Z-line appeared mildly irregular. A biopsy was taken 1 cm above this using cold biopsy forceps. The biopsy was sent to pathology, labeled as esophagus. The remainder of the esophagus appeared normal. The scope was removed, and the procedure terminated. The patient tolerated the procedure well, was taken to PACU in stable condition. ENDOSCOPIC DIAGNOSIS: Hiatal hernia. RECOMMENDATIONS: We will follow up with the patient in clinic in 2 weeks regarding her biopsy results and any further steps in treatment. HEMALATHA SINGH /[id number]
--- NOTE | 2021-03-31 11:47 | PCM48HPAN ---
Post Anesthesia Note - EVALUATION WITHIN 48HRS OF ANESTHETIC Vital Signs in Normal Range: Yes Patient Participated in Evaluation: Yes Respiratory Function Stable: Yes Airway Patent: Yes Cardiovascular Function Stable: Yes Hydration Status Stable: Yes Pain Control Satisfactory: Yes Nausea and Vomiting Control Satisfactory: Yes Mental Status Recovered: Yes Vital Signs: Last Vital Signs Temp 97.7 F 03/31/21 10:39 Pulse 72 03/31/21 11:00 Resp 16 03/31/21 11:00 BP 125/73 03/31/21 11:00 Pulse Ox 97 03/31/21 11:00
== END 2021-03-31 11:40 | disposition home or self-care (01) ==
LOC: MW.SDS 08:39
PROVIDERS: ATTEND Surgery
DX: R11.2 Nausea with vomiting, unspecified (principal); K44.9 Diaphragmatic hernia without obstruction or gangrene; K22.8 Other specified diseases of esophagus; K31.89 Other diseases of stomach and duodenum; E03.9 Hypothyroidism, unspecified; E78.5 Hyperlipidemia, unspecified; Z88.8 Allergy status to other drugs, medicaments and biological substances; Z91.09 Other allergy status, other than to drugs and biological substances; Z79.890 Hormone replacement therapy; Z79.899 Other long term (current) drug therapy; Z87.891 Personal history of nicotine dependence
CPT/HCPCS: 88305; 88312; J2250; J2704; J3010; J7120

== ENCOUNTER 2021-10-20 10:25 | Day surgery (SDC) | payer BC ==
[~2021-10-20 10:25] MED LIST changes: +Glycopyrrolate 0.2 MG/ML SDV ONE; +Ketorolac 30 MG/ML SDV ONE; +Lidocaine 2% 5 ML SDV ONE; +Midazolam 1 MG/ML 2 ML SDV ONE; +Ondansetron 4 MG/2 ML SDV ONE; +Propofol 200 MG/20 ML SDV ONE; +Rocuronium Bromide 50 MG/5 ML Syringe ONE; -Sodium Chloride 0.9% 10 ML SDV IV PRN; +Sodium Chloride 0.9% 20 ML SDV IV PRN; +Sugammadex Sodium 200 MG/2 ML VIAL ONE; +ceFAZolin 2 GM in Premix Bag 1 BAG IV ONE; +fentaNYL 250 MCG/5 ML SDV ONE
[2021-10-20] MEDS ORDERED: Bupivacaine 0.5% 30 ML SDV ONE (11:03)
--- NOTE | 2021-10-20 11:06 | PCM.PREANE ---
Preanesthetic Assessment - Procedure Proposed Procedure: lap alma - Anesthesia/Transfusion/Family Hx Anesthesia History: Prior Anesthesia Without Reaction Type of Anesthesia Reaction: Excessive Nausea/Vomiting Transfusion History: No Prior Transfusion(s) - Review of Systems General: No Symptoms Pulmonary: No Symptoms Cardiovascular: No Symptoms Gastrointestinal: No Symptoms Neurological: No Symptoms Other: Reports: None - Physical Assessment NPO Status Date: 10/19/21 NPO Status Time: 19:45 Height: 5 ft 8 in Weight: 74.843 kg ASA Class: 2 Mental Status: Alert & Oriented x3 Airway Class: Mallampati = 3 Dentition: Reports: Normal Dentition Thyro-Mental Finger Breadths: 2 Mouth Opening Finger Breadths: 3 ROM/Head Extension: Full Lungs: Clear to Auscultation, Normal Respiratory Effort Cardiovascular: Regular Rate, Regular Rhythm - Allergies Allergies/Adverse Reactions: Allergies Allergy/AdvReac Type Severity Reaction Status Date / Time adhesive tape Allergy Blisters Verified 10/14/21 12:11 gabapentin Allergy Nausea and Verified 10/14/21 12:11 Vomiting - Acknowledgements Anesthesia Type Planned: General Anesthesia Pt an Appropriate Candidate for the Planned Anesthesia: Yes Alternatives and Risks of Anesthesia Discussed w Pt/Guardian: Yes Pt/Guardian Understands and Agrees with Anesthesia Plan: Yes Additional Comments: Pt. has scopalamine patch behind right ear that she placed at home last evening. 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: Musculoskeletal History: Reports: Osteoarthritis Neurological History: Reports: Headaches, Chronic, Migraines, Other (See Below) Other Neuro History: pain from nerve damage on back of head, hx of Hemifacial Spasms- gets botox injections Psychiatric History: Reports: Anxiety, Depression, PTSD Endocrine/Metabolic History: Reports: Hypothyroidism Hematologic History: Reports: None Immunologic History: Reports: None Oncologic (Cancer) History: Reports: None Dermatologic History: Reports: None - Infectious Disease History Infectious Disease History: Reports: Chicken Pox - Past Surgical History Head Surgeries/Procedures: Reports: Craniotomy HEENT Surgical History: Reports: Oral Surgery, Tonsillectomy Other HEENT Surgeries/Procedures: wisdom teeth removed Cardiovascular Surgical History: Reports: None Respiratory Surgical History: Reports: None GI Surgical History: Reports: EGD Female Surgical History: Reports: Tubal Ligation Endocrine Surgical History: Reports: None Musculoskeletal Surgical History: Reports: Other (See Below) Other Musculoskeletal Surgeries/Procedures:: repair of "deformed bones" in her feet, Craniotomy Oncologic Surgical History: Reports: None Dermatological Surgical History: Reports: None - SUBSTANCE USE Tobacco Use Status *Q: Former Tobacco User Tobacco Use Within Last Twelve Months: No Recreational Drug Use History: No - HOME MEDS Home Medications: Home Meds Celecoxib [CeleBREX] 200 mg PO DAILY 02/03/20 [History] Levothyroxine 125 mcg PO QAM 02/03/20 [History] Melatonin 10 mg PO BEDTIME 02/03/20 [History] Escitalopram Oxalate 20 mg PO DAILY 03/25/21 [History] Promethazine [Phenergan] 25 mg PO Q4H PRN 03/25/21 [History] Ascorbate Calcium [Vitamin C] 500 mg PO DAILY 10/14/21 [History] Cholecalciferol (Vitamin D3) [Vitamin D3] 2,000 unit PO DAILY 10/14/21 [History] Doxepin HCl 6 mg PO BEDTIME 10/14/21 [History] Omeprazole 20 mg PO ACBREAKFAST 10/14/21 [History] - CURRENT (IN HOUSE) MEDS Current Meds: Current Medications Lactated Ringer's (Ringers, Lactated) 1,000 mls @ 125 mls/hr IV ASDIRECTED SAM Sodium Chloride (Sodium Chloride 0.9% 2.5 Ml Syringe) 2.5 ml FLUSH ASDIRECTED PRN PRN Reason: Keep Vein Open Sodium Chloride (Sodium Chloride 0.9% 20 Ml Sdv) 10 ml IV ASDIRECTED PRN PRN Reason: IV Use Sodium Chloride (Sodium Chloride 0.9% 10 Ml Syringe) 10 ml FLUSH ASDIRECTED PRN PRN Reason: Keep Vein Open Discontinued Medications Fentanyl (Fentanyl 250 Mcg/5 Ml Sdv) Confirm Administered Dose 250 mcg .ROUTE .STK-MED ONE Stop: 10/20/21 07:30 Glycopyrrolate (Glycopyrrolate 0.2 Mg/Ml Sdv) Confirm Administered Dose 0.2 mg .ROUTE .STK-MED ONE Stop: 10/20/21 07:30 Cefazolin Sodium/Dextrose 2 gm (/ Premix) 50 mls @ 100 mls/hr IV ONETIME ONE Stop: 10/19/21 14:23 Acetaminophen (Ofirmev 1000 Mg/100 Ml) Confirm Administered Dose 100 mls @ as directed .ROUTE .STK-MED ONE Stop: 10/20/21 09:14 Ketorolac Tromethamine (Ketorolac 30 Mg/Ml Sdv) Confirm Administered Dose 30 mg .ROUTE .STK-MED ONE Stop: 10/20/21 07:30 Lidocaine (Lidocaine 2% 5 Ml Sdv) Confirm Administered Dose 5 ml .ROUTE .STK-MED ONE Stop: 10/20/21 07:30 Midazolam HCl (Midazolam 1 Mg/Ml 2 Ml Sdv) Confirm Administered Dose 2 mg .ROUTE .STK-MED ONE Stop: 10/20/21 07:29 Ondansetron HCl (Ondansetron 4 Mg/2 Ml Sdv) Confirm Administered Dose 4 mg .ROUTE .STK-MED ONE Stop: 10/20/21 07:30 Propofol (Propofol 200 Mg/20 Ml Sdv) Confirm Administered Dose 200 mg .ROUTE .STK-MED ONE Stop: 10/20/21 07:27 Rocuronium [place] (Rocuronium [place] 50 Mg/5 Ml Syringe) Confirm Administered Dose 50 mg .ROUTE .STK-MED ONE Stop: 10/20/21 07:30 Sugammadex Sodium (Sugammadex Sodium 200 Mg/2 Ml Vial) Confirm Administered Dose 200 mg .ROUTE .STK-MED ONE Stop: 10/20/21 07:30
[2021-10-20] MEDS ORDERED: Dexamethasone 4 MG/ML 5 ML MDV ONE (11:08)
[2021-10-20] MEDS ORDERED: Sugammadex Sodium 200 MG/2 ML VIAL ONE (11:08)
[2021-10-20] MEDS ORDERED: Lidocaine 2% 5 ML SDV ONE ×2 (11:08→11:22)
[2021-10-20] MEDS ORDERED: Rocuronium Bromide 50 MG/5 ML Syringe ONE (11:08)
[2021-10-20] MEDS ORDERED: Ondansetron 4 MG/2 ML SDV ONE (11:08)
[2021-10-20] MEDS ORDERED: Midazolam 1 MG/ML 2 ML SDV ONE (11:09)
[2021-10-20] MEDS ORDERED: fentaNYL 250 MCG/5 ML SDV ONE (11:09)
[2021-10-20] MEDS ORDERED: Propofol 200 MG/20 ML SDV ONE (11:09)
[2021-10-20] MEDS ORDERED: propofoL 50 ML ONE (11:26)
[2021-10-20] MEDS ORDERED: Octyl 2-Cyanoacrylate 1 Tube ONE (11:49)
[2021-10-20] MEDS ORDERED: Metoclopramide 10 MG/2 ML SDV IVPUSH PRN (12:54)
[2021-10-20] MEDS ORDERED: HYDROmorphone 1 MG/ML Syringe IVPUSH PRN (12:54)
[2021-10-20] MEDS ORDERED: Albuterol 0.083% 2.5 MG/3 ML Neb Soln NEB PRN (12:54)
[2021-10-20] MEDS ORDERED: Naloxone 0.4 MG/ML SDV IVPUSH PRN (12:54)
[2021-10-20] MEDS ORDERED: Ondansetron 4 MG/2 ML SDV IVPUSH PRN (12:54)
[2021-10-20] MEDS ORDERED: fentaNYL 100 MCG/2 ML SDV IVPUSH PRN (12:54)
[2021-10-20] MEDS ORDERED: Ketorolac 30 MG/ML SDV ONE (13:34)
--- NOTE | 2021-10-20 14:12 | PCM.OPNOTE ---
- General Post-Op/Procedure Note Date of Surgery/Procedure: 10/20/21 Operative Procedure(s): Laparoscopic cholecystectomy Findings: adhesions of omentum to liver capsule and gallbladder Pre Op Diagnosis: biliary dyskinesia Post-Op Diagnosis: same Anesthesia Technique: MAC Primary Surgeon: Brenda Barrera Fluid Replacement, Intraop: 1,600 Output, Urine Amount: 75 EBL in mLs: 10 Condition: Good
--- NOTE | 2021-10-20 14:14 | PCM.POSTAN ---
POST ANESTHESIA ASSESSMENT - MENTAL STATUS Mental Status: Somnolent - VITAL SIGNS Vital Signs: Last Vital Signs Temp 97.7 F 10/20/21 14:01 Pulse 89 10/20/21 14:12 Resp 16 10/20/21 14:12 BP 137/57 L 10/20/21 14:12 Pulse Ox 100 10/20/21 14:12 - RESPIRATORY Respiratory Status: Respiratory Rate WNL, Airway Patent, O2 Saturation Stable - CARDIOVASCULAR CV Status: Pulse Rate WNL, Blood Pressure Stable - GASTROINTESTINAL GI Status: No Symptoms - PAIN Free Text/Narrative:: Resting comfortably - POST OP HYDRATION Hydration Status: Adequate & Stable
--- NOTE | 2021-10-20 14:36 | PCM48HPAN ---
Post Anesthesia Note - EVALUATION WITHIN 48HRS OF ANESTHETIC Vital Signs in Normal Range: Yes Patient Participated in Evaluation: Yes Respiratory Function Stable: Yes Airway Patent: Yes Cardiovascular Function Stable: Yes Hydration Status Stable: Yes Pain Control Satisfactory: Yes Nausea and Vomiting Control Satisfactory: Yes Mental Status Recovered: Yes Vital Signs: Last Vital Signs Temp 97.7 F 10/20/21 14:01 Pulse 80 10/20/21 14:27 Resp 12 10/20/21 14:27 BP 121/66 10/20/21 14:27 Pulse Ox 94 L 10/20/21 14:27 - COMMENTS/OBSERVATIONS Free Text/Narrative:: Pt doing well post-op. VSS. No apparent anesthetic complications. Dr. Cecil Wei
--- NOTE | 2021-10-20 16:18 | OR ---
SURGEON: BRENDA BARRERA MD DATE OF PROCEDURE: 10/20/2021 PREOPERATIVE DIAGNOSIS: Biliary dyskinesia. POSTOPERATIVE DIAGNOSIS: Biliary dyskinesia. PROCEDURE PERFORMED: Laparoscopic cholecystectomy. PRIMARY SURGEON: Brenda Barrera MD ANESTHESIA: General endotracheal anesthesia. FLUIDS: 1400 mL crystalloid. ESTIMATED BLOOD LOSS: 10 mL. URINE OUTPUT: 75 mL. FINDINGS: Multiple adhesions of the omentum to the gallbladder and the surrounding liver capsule. COMPLICATIONS: None. INDICATIONS: The patient is a 56-year-old female with chronic nausea and vomiting. As a part of her workup, she was found to have biliary dyskinesia with an ejection fraction of 0%. The decision was made to proceed with a laparoscopic, possible open cholecystectomy. I explained the procedure, expected perioperative course, and the risks. She verbalized understanding and wishes to proceed. PROCEDURE IN DETAIL: Patient was brought in to the OR and placed on the OR table in supine position. A time-out was completed verifying the patient's name, age, date of , allergies, and procedure to be performed. General endotracheal anesthesia was induced. The left arm was tucked at the patient's side and a Bowers catheter placed. The abdomen was prepped and draped in usual standard fashion. I anesthetized the infraumbilical fold with 0.5% Marcaine plain. An incision was made using an 11-blade along the infraumbilical fold. Using cautery, I dissected down to the subcutaneous fat. I bluntly dissected down to the fascia. The fascia was elevated with Kochers and incised sharply with curved Lopez scissors. I grasped the peritoneum with a hemostat and entered it sharply as well. A 12 mm Marck trocar was inserted into the abdomen and the abdomen insufflated. A 5 mm 30-degree scope was inserted into the abdomen. I inspected the area underneath my initial trocar placement. No damage to surrounding structures was noted. The patient was placed in reverse Trendelenburg position and airplaned slightly to the left. 5 mm trocars were placed under direct visualization in the following locations; one in the epigastric area, one in the right flank, and one 2 fingerbreadths below the right subcostal margin in the midclavicular line. The dome of the gallbladder was grasped. There were multiple adhesions of the omentum to the gallbladder as well as the surrounding liver capsule. Using gentle blunt dissection as well as hook cautery, these were taken down. Once the gallbladder and liver edges were freed from the omentum, I was able to elevate the gallbladder and identify the infundibulum. Using blunt dissection as well as hook cautery, I took down the attachments around the cystic duct and artery. Once these were cleared away, I then dissected the proximal one-third of the cystic plate. Once my critical view was achieved, a photograph was taken. I doubly clipped and ligated the cystic duct and artery. I then took down the remainder of the attachments of the gallbladder to the cystic plate using hook cautery. The gallbladder was then placed in an EndoCatch bag and removed through the 12 mm port site. I then reinspected my operative field. The cystic plate itself appeared to be hemostatic. There was no evidence of bile leakage and the clips were in good position. There was some minor oozing along the edges of the omentum that had been previously taken down. Surgicel was placed over these and hemostasis was achieved. I irrigated the abdomen with normal saline until it ran clear. This was all suctioned out. The 5 mm trocars were then removed under direct visualization and the abdomen allowed to desufflate. The 12 mm Marck trocar was removed as well. I then closed the fascia at the infraumbilical port site with interrupted 0 Vicryl sutures. The skin was then closed with a running 4-0 Monocryl stitch. The 5 mm trocar sites were closed with interrupted 4-0 Monocryl sutures as well. Dermabond and sterile dressings were applied. The patient tolerated the procedure well, was extubated, and taken to PACU in stable condition. All counts were complete and correct at the end of the case. HEMALATHA / FRANCISCO /[id number]
== END 2021-10-20 15:32 | disposition home or self-care (01) ==
LOC: MW.SDS 10:25
PROVIDERS: ATTEND Surgery
DX: K81.1 Chronic cholecystitis (principal); K82.8 Other specified diseases of gallbladder; K21.9 Gastro-esophageal reflux disease without esophagitis; F41.1 Generalized anxiety disorder; F32.A Depression, unspecified; E78.5 Hyperlipidemia, unspecified; E03.9 Hypothyroidism, unspecified; G47.00 Insomnia, unspecified; U09.9 Post COVID-19 condition, unspecified; Z88.8 Allergy status to other drugs, medicaments and biological substances; Z79.899 Other long term (current) drug therapy; Z98.890 Other specified postprocedural states; Z87.891 Personal history of nicotine dependence; Z79.890 Hormone replacement therapy
CPT/HCPCS: 47562; A9270; J0131; J0690; J1100; J1885; J2250; J2704; J3010; J3490; J7120; 00790; J2405

== ENCOUNTER 2022-10-01 19:31 | Emergency (ER) | payer BC ==
[2022-10-01] MEDS ORDERED: Rocuronium 100 MG/10 ML MDV IV ONE (19:32)
[2022-10-01] MEDS ORDERED: propofoL 100 ML IV SCH (19:45)
[2022-10-01] MEDS: propofoL 100 ML ONE ×2 (19:51→21:15)
[2022-10-01 20:31] LABS: ACETAMINOPHEN <2.0 ug/mL; BLOOD UREA NITROGEN,BUN 9 mg/dL (7.0-18.0); CARBON DIOXIDE,CO2 24.1 mmol/L (21.0-32.0); CHLORIDE,CL 104 mmol/L (98-107); GLUCOSE RANDOM 165 mg/dL (74-106); POTASSIUM,K 3.8 mmol/L (3.5-5.1); SODIUM,NA 140 mmol/L (136-145)
[2022-10-01 20:32] LABS: ESTIMATED GFR 106 mL/min (>60)
[2022-10-01] MEDS ORDERED: Naloxone 0.4 MG/ML SDV ONE (22:47)
[2022-10-01] MEDS ORDERED: Ketamine 500 mg/10 ML MDV ONE (23:50)
[2022-10-02 00:29] LABS: ACETAMINOPHEN <2.0 ug/mL
[2022-10-02] MEDS ORDERED: LORazepam 2 MG/ML SDV IVPUSH STA (00:35)
[2022-10-02] MEDS ORDERED: Magnesium Sulfate/Water 2 GM in Premix Bag 1 BAG IV ONE (00:39)
[2022-10-02] MEDS ORDERED: Aspirin 300 MG Supp RECTAL STA (00:42)
[2022-10-02] MEDS ORDERED: Propofol 200 MG/20 ML SDV IVPUSH STA ×3 (00:48→00:49)
[2022-10-02] MEDS ORDERED: Ketamine 500 mg/10 ML MDV IV STA (00:49)
[2022-10-02] MEDS ORDERED: propofoL 100 ML IV SCH (01:00)
== END 2022-10-02 01:42 ==
LOC: MW.ED 19:31
DX: G93.40 Encephalopathy, unspecified (principal); R79.89 Other specified abnormal findings of blood chemistry; K21.9 Gastro-esophageal reflux disease without esophagitis; E03.9 Hypothyroidism, unspecified; M19.90 Unspecified osteoarthritis, unspecified site; Z88.8 Allergy status to other drugs, medicaments and biological substances; Z91.048 Other nonmedicinal substance allergy status; Z79.899 Other long term (current) drug therapy; Z20.822 Contact with and (suspected) exposure to COVID-19
CPT/HCPCS: 31500; 36415; 36600; 43752; 51702; 70450; 71045; 80053; 80143; 80179; 80305; 80307; 81003; 82550; 82803; 83605; 83735; 84443; 84484; 84703; 85025; 85610; 87040; 87635; 93005; 99291; 99292; A9270; J2060; J2310; J2704; J3475; J3490; 93010; U0002

== ENCOUNTER 2023-01-10 12:56 | Emergency (ER) | payer BC ==
[2023-01-10] MEDS ORDERED: Morphine 4 MG/ML Syringe IVPUSH ONE ×2 (13:05→14:46)
[2023-01-10] MEDS ORDERED: Ondansetron 4 MG/2 ML SDV IVPUSH ONE ×2 (13:05→14:29)
[2023-01-10] MEDS ORDERED: HYDROmorphone 1 MG/ML Syringe IVPUSH ONE (14:29)
[2023-01-10 15:50] LABS: CORONAVIRUS COVID-19 NAA POSITIVE (NEGATIVE); INFLUENZA A NAA NEGATIVE (NEGATIVE); INFLUENZA B NAA NEGATIVE (NEGATIVE)
== END 2023-01-10 16:14 | disposition home or self-care (01) ==
LOC: MW.ED 12:56
DX: M54.50 Low back pain, unspecified (principal); K21.9 Gastro-esophageal reflux disease without esophagitis; Z88.8 Allergy status to other drugs, medicaments and biological substances; Z91.09 Other allergy status, other than to drugs and biological substances
CPT/HCPCS: 0240U; 70450; 72125; 72131; 73521; 96374; 96375; 96376; 99285; J2270; J2405; 99284

== ENCOUNTER 2023-01-16 17:11 | Inpatient (IN) | payer BC ==
[2023-01-16] MEDS ORDERED: LORazepam 2 MG/ML SDV IVPUSH STA ×2 (18:06→18:35)
[2023-01-16 19:20] LABS: BLOOD UREA NITROGEN,BUN 7 mg/dL (7.0-18.0); CARBON DIOXIDE,CO2 24.4 mmol/L (21.0-32.0); CHLORIDE,CL 101 mmol/L (98-107); GLUCOSE RANDOM 108 mg/dL (74-106); SODIUM,NA 138 mmol/L (136-145)
[2023-01-16 19:23] LABS: ESTIMATED GFR 87 mL/min (>60)
[2023-01-17] MEDS ORDERED: Lactated Ringers 2,000 ML IV SCH (01:30)
[2023-01-17] MEDS ORDERED: Acetaminophen 325 MG Tab PO PRN ×2 (01:44→12:00)
[2023-01-17] MEDS: Sodium Chloride 0.9% 1,000 ML IV SCH ×3 (02:59→22:25)
[2023-01-17] MEDS ORDERED: Sodium Chloride 0.9% 2.5 ML Syringe FLUSH PRN (08:00)
[2023-01-17] MEDS ORDERED: Sodium Chloride 0.9% 10 ML Syringe FLUSH PRN (08:00)
[2023-01-17] MEDS ORDERED: Meclizine 25 MG Tab PO PRN (09:05)
[2023-01-17] MEDS ORDERED: Baclofen 10 MG Tab PO PRN (09:20)
[2023-01-17] MEDS: Ondansetron 4 MG/2 ML SDV IVPUSH PRN ×2 (11:28→17:44)
[2023-01-17] MEDS ORDERED: Acetaminophen 1,000 MG in Premix Bag 1 BAG IV ONE (12:01)
[2023-01-17] MEDS: LORazepam 2 MG/ML SDV IVPUSH PRN ×2 (13:45→21:51)
[2023-01-17] MEDS ORDERED: Albuterol/Ipratropium 3.0-0.5 MG/3 ML Neb Soln NEB PRN (14:35)
[2023-01-17] MEDS: traMADol 50 MG Tab PO PRN (17:38)
[2023-01-17] MEDS ORDERED: Acetaminophen 500 MG Tab PO PRN (18:00)
[2023-01-17] MEDS: Melatonin 3 MG Tab PO SCH (21:37)
[2023-01-17] MEDS: Promethazine 25 MG Tab PO PRN (21:51)
[2023-01-18] MEDS: Levothyroxine 112 MCG Tab PO SCH (06:49)
[2023-01-18] MEDS: Omeprazole 20 MG Cap.CR PO SCH (06:49)
[2023-01-18 07:26] LABS: CARBON DIOXIDE,CO2 26.6 mmol/L (21.0-32.0); POTASSIUM,K 3.7 mmol/L (3.5-5.1)
[2023-01-18] MEDS: Sodium Chloride 0.9% 1,000 ML IV SCH (08:14)
[2023-01-18] MEDS: Ondansetron 4 MG/2 ML SDV IVPUSH PRN ×2 (08:16→17:36)
[2023-01-18] MEDS ORDERED: Magnesium Sulfate/Water 2 GM in Premix Bag 1 BAG IV ONE (09:13)
[2023-01-18] MEDS: traMADol 50 MG Tab PO PRN ×2 (11:51→20:06)
[2023-01-18] MEDS: LORazepam 2 MG/ML SDV IVPUSH PRN ×2 (11:59→20:07)
[2023-01-18] MEDS: FLUoxetine 20 MG Cap PO SCH (20:07)
[2023-01-18] MEDS: Melatonin 3 MG Tab PO SCH (20:07)
[2023-01-19] MEDS: Omeprazole 20 MG Cap.CR PO SCH ×3 (06:21→06:33)
[2023-01-19] MEDS: Levothyroxine 112 MCG Tab PO SCH ×2 (06:22→06:33)
[2023-01-19 06:36] LABS: CARBON DIOXIDE,CO2 29.1 mmol/L (21.0-32.0); POTASSIUM,K 3.8 mmol/L (3.5-5.1)
[2023-01-19] MEDS ORDERED: Magnesium Sulfate/Water 2 GM in Premix Bag 1 BAG IV ONE (08:07)
[2023-01-19] MEDS: traMADol 50 MG Tab PO PRN ×2 (08:15→21:05)
[2023-01-19] MEDS: LORazepam 2 MG/ML SDV IVPUSH PRN ×2 (08:15→21:05)
[2023-01-19] MEDS: Ondansetron 4 MG/2 ML SDV IVPUSH PRN ×2 (08:16→21:05)
[2023-01-19] MEDS: Enoxaparin 40 MG/0.4 ML Syringe SUBCUT SCH (09:41)
[2023-01-19] MEDS: Sennosides 8.6 MG Tab PO PRN (10:13)
[2023-01-19] MEDS: Calcium Carbonate/Vitamin D3 1500 MG-400 Units Tab PO SCH (10:13)
[2023-01-19] MEDS: Baclofen 10 MG Tab PO SCH ×3 (10:14→21:04)
[2023-01-19] MEDS: Melatonin 3 MG Tab PO SCH (21:04)
[2023-01-19] MEDS: FLUoxetine 20 MG Cap PO SCH (21:05)
[2023-01-20] MEDS: Baclofen 10 MG Tab PO SCH ×3 (06:28→21:00)
[2023-01-20] MEDS: Omeprazole 20 MG Cap.CR PO SCH (06:29)
[2023-01-20] MEDS: Levothyroxine 112 MCG Tab PO SCH (06:29)
[2023-01-20 06:48] LABS: CARBON DIOXIDE,CO2 29.8 mmol/L (21.0-32.0); POTASSIUM,K 3.8 mmol/L (3.5-5.1)
[2023-01-20] MEDS: Ondansetron 4 MG/2 ML SDV IVPUSH PRN ×2 (08:15→20:54)
[2023-01-20] MEDS: Calcium Carbonate/Vitamin D3 1500 MG-400 Units Tab PO SCH (08:16)
[2023-01-20] MEDS: Enoxaparin 40 MG/0.4 ML Syringe SUBCUT SCH (08:16)
[2023-01-20] MEDS: Docusate Sodium 100 MG Cap PO SCH (08:16)
[2023-01-20] MEDS: Promethazine 25 MG Tab PO PRN (11:23)
[2023-01-20] MEDS: traMADol 50 MG Tab PO PRN ×2 (12:02→20:54)
[2023-01-20] MEDS: LORazepam 2 MG/ML SDV IVPUSH PRN (20:54)
[2023-01-20] MEDS: Melatonin 3 MG Tab PO SCH (20:55)
[2023-01-20] MEDS: FLUoxetine 20 MG Cap PO SCH (21:02)
[2023-01-21] MEDS: Baclofen 10 MG Tab PO SCH ×3 (05:56→21:05)
[2023-01-21] MEDS: Levothyroxine 112 MCG Tab PO SCH (07:00)
[2023-01-21] MEDS: Omeprazole 20 MG Cap.CR PO SCH (07:01)
[2023-01-21] MEDS: Ondansetron 4 MG/2 ML SDV IVPUSH PRN (08:24)
[2023-01-21] MEDS: traMADol 50 MG Tab PO PRN ×2 (08:30→18:06)
[2023-01-21] MEDS: Calcium Carbonate/Vitamin D3 1500 MG-400 Units Tab PO SCH (08:46)
[2023-01-21] MEDS: Docusate Sodium 100 MG Cap PO SCH (08:48)
[2023-01-21] MEDS: Enoxaparin 40 MG/0.4 ML Syringe SUBCUT SCH (08:49)
[2023-01-21] MEDS: Celecoxib 100 MG Cap PO SCH (18:06)
[2023-01-21] MEDS: Promethazine 25 MG Tab PO PRN (18:21)
[2023-01-21] MEDS: FLUoxetine 20 MG Cap PO SCH (21:04)
[2023-01-21] MEDS: Rosuvastatin 10 MG Tab PO SCH (21:05)
[2023-01-21] MEDS: Melatonin 3 MG Tab PO SCH (21:05)
[2023-01-21] MEDS: LORazepam 2 MG/ML SDV IVPUSH PRN (21:05)
[2023-01-21] MEDS: Sennosides 8.6 MG Tab PO PRN (21:05)
[2023-01-22] MEDS: Baclofen 10 MG Tab PO SCH ×3 (06:30→21:06)
[2023-01-22] MEDS: Omeprazole 20 MG Cap.CR PO SCH (06:31)
[2023-01-22] MEDS: Levothyroxine 112 MCG Tab PO SCH (07:14)
[2023-01-22] MEDS ORDERED: Bisacodyl 5 MG Tab PO ONE (09:00)
[2023-01-22] MEDS: Docusate Sodium 100 MG Cap PO SCH (09:08)
[2023-01-22] MEDS: Calcium Carbonate/Vitamin D3 1500 MG-400 Units Tab PO SCH (09:10)
[2023-01-22] MEDS: Ondansetron 4 MG/2 ML SDV IVPUSH PRN ×2 (10:16→18:46)
[2023-01-22] MEDS: traMADol 50 MG Tab PO PRN ×2 (10:19→18:50)
[2023-01-22] MEDS: Enoxaparin 40 MG/0.4 ML Syringe SUBCUT SCH (10:21)
[2023-01-22] MEDS: VITAMIN D3 5000 UNIT PO SCH (12:42)
[2023-01-22] MEDS: CALCIUM CARBONATE 600 MG PO SCH (12:43)
[2023-01-22] MEDS: Celecoxib 100 MG Cap PO SCH (18:03)
[2023-01-22] MEDS ORDERED: Calcium Carbonate 500 MG Tablet PO SCH (21:00)
[2023-01-22] MEDS ORDERED: Cholecalciferol (Vitamin D3) 25 MCG Tab PO SCH (21:00)
[2023-01-22] MEDS: Sennosides 8.6 MG Tab PO PRN (21:06)
[2023-01-22] MEDS: FLUoxetine 20 MG Cap PO SCH (21:06)
[2023-01-22] MEDS: Melatonin 3 MG Tab PO SCH (21:07)
[2023-01-22] MEDS: Rosuvastatin 10 MG Tab PO SCH (21:07)
[2023-01-22] MEDS: LORazepam 2 MG/ML SDV IVPUSH PRN (21:07)
[2023-01-23] MEDS: Baclofen 10 MG Tab PO SCH ×3 (06:16→21:10)
[2023-01-23] MEDS: Levothyroxine 112 MCG Tab PO SCH ×2 (06:17→06:33)
[2023-01-23] MEDS: Omeprazole 20 MG Cap.CR PO SCH ×2 (06:17→06:33)
[2023-01-23] MEDS ORDERED: Bisacodyl 10 MG Supp RECTAL PRN (08:27)
[2023-01-23] MEDS: Ondansetron 4 MG/2 ML SDV IVPUSH PRN ×2 (09:10→18:50)
[2023-01-23] MEDS: Docusate Sodium 100 MG Cap PO SCH (09:10)
[2023-01-23] MEDS: traMADol 50 MG Tab PO PRN ×2 (09:10→18:49)
[2023-01-23] MEDS: Enoxaparin 40 MG/0.4 ML Syringe SUBCUT SCH (09:10)
[2023-01-23] MEDS: VITAMIN D3 5000 UNIT PO SCH (09:11)
[2023-01-23] MEDS: CALCIUM CARBONATE 600 MG PO SCH (09:12)
[2023-01-23] MEDS: Celecoxib 100 MG Cap PO SCH (18:48)
[2023-01-23] MEDS: FLUoxetine 20 MG Cap PO SCH (21:10)
[2023-01-23] MEDS: LORazepam 2 MG/ML SDV IVPUSH PRN (21:11)
[2023-01-23] MEDS: Rosuvastatin 10 MG Tab PO SCH (21:11)
[2023-01-23] MEDS: Melatonin 3 MG Tab PO SCH (21:11)
[2023-01-24] MEDS: Levothyroxine 112 MCG Tab PO SCH ×2 (06:22→06:32)
[2023-01-24] MEDS: Baclofen 10 MG Tab PO SCH ×3 (06:22→21:41)
[2023-01-24] MEDS: Omeprazole 20 MG Cap.CR PO SCH ×2 (06:22→06:32)
[2023-01-24] MEDS: Ondansetron 4 MG/2 ML SDV IVPUSH PRN ×2 (08:45→21:44)
[2023-01-24] MEDS: traMADol 50 MG Tab PO PRN ×2 (08:45→21:44)
[2023-01-24] MEDS: Enoxaparin 40 MG/0.4 ML Syringe SUBCUT SCH (08:45)
[2023-01-24] MEDS: Docusate Sodium 100 MG Cap PO SCH (08:46)
[2023-01-24] MEDS: CALCIUM CARBONATE 650 MG PO SCH (08:47)
[2023-01-24] MEDS: VITAMIN D3 5000 UNIT PO SCH (08:48)
[2023-01-24] MEDS: LORazepam 0.5 MG Tab PO PRN ×2 (10:51→23:08)
[2023-01-24] MEDS: Promethazine 25 MG Tab PO PRN (13:16)
[2023-01-24] MEDS: Celecoxib 100 MG Cap PO SCH (18:45)
[2023-01-24] MEDS: Rosuvastatin 10 MG Tab PO SCH (21:41)
[2023-01-24] MEDS: FLUoxetine 20 MG Cap PO SCH (21:41)
[2023-01-24] MEDS: Melatonin 3 MG Tab PO SCH (21:41)
[2023-01-25] MEDS: Baclofen 10 MG Tab PO SCH (06:20)
[2023-01-25] MEDS: Levothyroxine 112 MCG Tab PO SCH ×2 (06:20→06:32)
[2023-01-25] MEDS: Omeprazole 20 MG Cap.CR PO SCH ×2 (06:20→06:32)
[2023-01-25] MEDS: Docusate Sodium 100 MG Cap PO SCH (09:26)
[2023-01-25] MEDS: traMADol 50 MG Tab PO PRN (09:26)
[2023-01-25] MEDS: Ondansetron 4 MG/2 ML SDV IVPUSH PRN (09:28)
[2023-01-25] MEDS: Enoxaparin 40 MG/0.4 ML Syringe SUBCUT SCH (09:28)
[2023-01-25] MEDS: CALCIUM CARBONATE 650 MG PO SCH (09:29)
[2023-01-25] MEDS: VITAMIN D3 5000 UNIT PO SCH (09:29)
[2023-01-25] MEDS: LORazepam 0.5 MG Tab PO PRN (10:24)
== END 2023-01-25 11:00 | DRG 422 ==
LOC: MW.ED 17:11 → MW.MS 01-17 01:36 → OBSVTOIN 01-18 09:12 → MW.MS 01-18 14:30
PROVIDERS: ADMIT Internal Medicine; ATTEND Internal Medicine
PROC: 8E0ZXY6 Isolation (ICD-10-PCS; principal; 2023-01-18)
DX: E86.0 Dehydration (principal); U07.1 COVID-19; S09.90XA Unspecified injury of head, initial encounter; R42 Dizziness and giddiness; Q28.2 Arteriovenous malformation of cerebral vessels; F41.9 Anxiety disorder, unspecified; K21.9 Gastro-esophageal reflux disease without esophagitis; M54.2 Cervicalgia; F32.A Depression, unspecified; F43.10 Post-traumatic stress disorder, unspecified; E03.9 Hypothyroidism, unspecified; K59.00 Constipation, unspecified; W18.30XA Fall on same level, unspecified, initial encounter; G43.909 Migraine, unspecified, not intractable, without status migrainosus; M19.90 Unspecified osteoarthritis, unspecified site; G93.49 Other encephalopathy; G89.29 Other chronic pain; Z98.890 Other specified postprocedural states; Z88.8 Allergy status to other drugs, medicaments and biological substances; Z79.899 Other long term (current) drug therapy; Z87.442 Personal history of urinary calculi; Z98.51 Tubal ligation status; Y92.008 Other place in unspecified non-institutional (private) residence as the place of occurrence of the external cause; Z79.890 Hormone replacement therapy
CPT/HCPCS: 36415; 70450; 70450-26; 71045; 71045-26; 72125; 72125-26; 80048; 80053; 81003; 82550; 83605; 83735; 84484; 85025; 85379; 93005; 93010; 96361; 96374; 96375; 96376; 97110-GP; 97116-GP; 97163-GP; 97530-GP; 99284; 99285-25; A9270-GY; G0378; J0131; J1650; J1790; J2060; J2405; J3475; J7030; J7120